=== PATIENT | male | born 2000 | race Caucasian/White ===

== ENCOUNTER 2019-12-02 02:47 | Emergency (ER) | payer MEDICAID, OTHER ==
[~2019-12-02] VITALS: Ht 172.7 cm; Wt 72.7 kg
[2019-12-02 03:29] VITALS: BP 121/64
== END 2019-12-02 03:31 ==
LOC: ER 02:48
DX: F12.10 Cannabis abuse, uncomplicated (principal); Z02.89 Encounter for other administrative examinations
CPT/HCPCS: 99283